=== PATIENT | male | born 1945 | race Caucasian/White ===

== ENCOUNTER 2017-03-26 07:06 | Day surgery (SDC) | payer MEDICARE, BC ==
[2017-03-22 10:04] LABS: BASOPHILS 0.2 %; BASOPHILS ABSOLUTE 0.01 10/3/uL (0.0-0.16); EOSINOPHILS 3.9 %; EOSINOPHILS ABSOLUTE 0.23 10/3/uL (0.0-0.53); HEMATOCRIT 44.1 % (40.0-51.0); IMMATURE GRANULOCYTES 0.2 %; IMMATURE GRANULOCYTES ABSOLUTE 0.01 10/3/uL (0.0-0.11); LYMPHOCYTES 34.7 %; LYMPHOCYTES ABSOLUTE 2.05 10/3/uL (0.67-4.30); MEAN CORPUSCULAR HEMOGLOB 28.7 pg (26.0-34.0); MEAN CORPUSCULAR VOLUME 84.3 fL (80-100); MONOCYTES 9.1 %; MONOCYTES ABSOLUTE 0.54 10/3/uL (0.21-1.20); NEUTROPHILS 51.9 %; NEUTROPHILS ABSOLUTE 3.07 10/3/uL (2.02-8.40); PLATELET COUNT 203 10/3/uL (150-400); RBC DISTRIBUTION WIDTH 13.9 % (12.0-16.0); RED CELL COUNT 5.23 10/6/uL (4.7-6.1); WHITE BLOOD CELLS 5.9 10/3/uL (4.5-10.5)
[2017-03-22 10:07] LABS: MANUAL DIFF NO %
[2017-03-22 10:12] LABS: A/G RATIO 1.4 (0.7-1.9); ALBUMIN 3.9 G/DL (3.5-5.0); ALKALINE PHOSPHATASE 116 U/L (45-117); BUN (BLOOD UREA NITROGEN) 24 MG/DL (6-23); CALCIUM, SERUM 8.8 MG/DL (8.5-10.4); CHLORIDE, SERUM 108 MMOL/L (96-112); CO2 (CARBON DIOXIDE) 32 MMOL/L (24-34); CREATININE 1.25 MG/DL (0.70-1.30); GFR AFRICAN AMERICAN 66 ML/MIN (>=60); GFR NON AFRICAN AMERICAN 57 ML/MIN (>=60); GLOBULIN 2.8 G/DL (2.5-4.1); GLUCOSE, SERUM 92 MG/DL (60-99); POTASSIUM, SERUM 3.9 MMOL/L (3.5-5.3); SGOT(AST) 23 U/L (5-40); SGPT(ALT) 24 U/L (5-65); SODIUM, SERUM 143 MMOL/L (135-148); TOTAL BILIRUBIN 0.8 MG/DL (0-1.2); TOTAL PROTEIN 6.7 G/DL (6.0-8.5)
--- NOTE | ~2017-03-26 | OP ---
Record Of Operation [facility] [address] [place]. [address] NAME: DULCE BAIG : 43 [place]US : [place] [facility] [place] PAT#: [id number] AGE: 71 ADM/REG DATE : 03/26/17 MR#: [id number] REPORT SERV DATE: 03/26/17 DICTATED BY: KAVIN RAGLAND III DATE: 03/26/17 REPORT STATUS : Draft TRANSCRIBED BY: MODDavid DATE: 03/26/17 DATE OF PROCEDURE: 03/26/2017 PREOPERATIVE DIAGNOSIS: Recurrent symptomatic right inguinal hernia. POSTOPERATIVE DIAGNOSIS: Recurrent symptomatic right inguinal hernia. PROCEDURE: Open [place] tension-free repair of right inguinal hernia with Prolene mesh. SURGEON: Kavin Ragland M.D. ANESTHESIA: General with intubation. COMPLICATIONS: None. ESTIMATED BLOOD LOSS: Less than 5 mL. SPECIMENS: None. DRAINS: None. LAP AND SPONGE COUNT: Correct x3. BRIEF HISTORY: This 71-year-old male presented with a symptomatic recurrent right inguinal hernia. It was felt that open right inguinal hernia repair was indicated. This procedure, the risks, benefits, and alternatives, including not limited to the risk for bleeding, infection, pain, swelling, scarring, deformity of the area, seroma formation, hematoma formation, recurrence of the hernia, nerve injury, chronic paresthesia, pain in the thigh, scrotum, or groin, chronic neuralgia or neuroma, and unforeseen complications including deep venous thrombosis, pulmonary embolus, myocardial infarction, stroke, pneumonia, and , were explained to the patient prior to surgery. The expected length of recovery was explained. The patient had questions, which were answered. He fully understood the risks and agreed to surgery as planned. PROCEDURE: After being properly identified and after discussing the risks of surgery with him again in the preoperative area and after identifying the hernia with his help in the preoperative area, the patient was taken to the operating room and placed in supine position on the operating room table. General anesthesia was administered. He was intubated without difficulty. The abdomen and groins were prepped and draped sterilely in the usual fashion. After an appropriate "time-out" per JCAHO standards, a small oblique incision was made in the right groin from pubic tubercle medially towards the anterior and superior iliac spine laterally. The incision was continued through the subcutaneous tissue. Hemostasis was controlled with cautery. The external oblique fascia was identified. This was very thin and attenuated. It was opened along the direction of its fibers, so as to open the external inguinal ring. Using sharp dissection, the underlying ilioinguinal and genitofemoral nerves were identified. These were carefully isolated and protected to one side. Using sharp Record Of Operation [place] [id number] [facility] [place]. [address] NAME: DULCE BAIG : 43 [place]US : [place] [facility] [place] PAT#: [id number] AGE: 71 ADM/REG DATE : 03/26/17 MR#: [id number] REPORT SERV DATE: 03/26/17 DICTATED BY: KAVIN RAGLAND III DATE: 03/26/17 REPORT STATUS : Draft TRANSCRIBED BY: MINE DATE: 03/26/17 dissection, the spermatic cord and contents were mobilized from the floor of the canal. A [place] drain placed beneath it. There was noted to be two direct hernias protruding through the floor of the canal, one in the midportion of the canal and the other just lateral to the internal ring. Using sharp dissection, these hernias were dissected free from the surrounding tissues and reduced back in the abdominal cavities. The spermatic cord was skeletonized and it was noted there was no indirect component to the hernia. The fascial defects were closed with interrupted 2-0 silk sutures, which were placed between shelving edge of the inguinal ligament laterally and the internal oblique and transversalis fascia medially. This resulted in good closure of the two discrete separate fascial defects with no tension. A Prolene mesh was then selected and cut to the appropriate size for the floor of the canal. A slit was made in the mesh laterally to incorporate the spermatic cord. The mesh was then secured to the floor of the canal with a running 2-0 Prolene suture, which was placed between the edge of the mesh and shelving edge of the inguinal ligament laterally and the edge of the mesh, in the internal, oblique, and transversalis fascia medially. The mesh was secured lateral to the cord as well. Upon completion of this, the mesh lay nicely on the floor of the canal. It was not twisted or kinked in any way. It was not under any tension. A small finger could be placed through the internal ring, so the spermatic vessels not been unduly tightened or narrowed. Hemostasis was assured. The external oblique fascia was closed with a running 2-0 silk suture. Subcutaneous tissue was closed with running 3-0 chromic suture. The skin was closed with running subcuticular 4-0 Monocryl stitch. The incision was injected with 0.5% Marcaine. Dressings were applied. Anesthesia was reversed. The patient returned to the recovery room in stable condition. He tolerated the procedure well. His family was informed results of surgery. The patient will be discharged when stable and comfortable and able to void and ambulate. His family was advised he is to keep his wounds clean and dry for 48 hours, he should not drive for three to four days after surgery or while using narcotics, that he should resume his usual medications and should not perform any heavy lifting for five to six weeks. He was asked to return in two weeks for followup or sooner if any fever, chills, wound drainage, or other problems prior to that time. He was given a prescription for Percocet 7.5 one t.i.d. #12, as needed for pain, which he was advised not to use while driving or with other narcotics. RHJ/MODL Kavin Ragland III, M.D. / [id number] CC: Kavin Ragland III, M.D.
--- NOTE | ~2017-03-26 | PREOPHP ---
PreOp History and Physical [address] [place]. [address] NAME: DULCE BAIG : 43 STATUS : PRE [facility] [place] PAT#: [id number] AGE: 71 ADM/REG DATE : MR#: [id number] REPORT SERV DATE: 03/26/17 DICTATED BY: KAVIN CASTILLO III DATE: 03/14/17 REPORT STATUS : Draft TRANSCRIBED BY: MODDavid DATE: 03/14/17 HISTORY OF PRESENT ILLNESS: This 71-year-old male comes to the operating room for open repair of symptomatic right inguinal hernia. The patient has a right inguinal hernia, which has been associated with local pain and discomfort. The patient has had no nausea, vomiting, or obstructive symptoms. He comes to the operating room now for open repair of this hernia. PAST MEDICAL HISTORY: Essentially unremarkable. No history of any significant medical problems. MEDICATIONS: None regularly. FAMILY HISTORY: Positive for heart disease. SOCIAL HISTORY: The patient has a history of tobacco abuse. No history of alcohol use. ALLERGIES: NONE. REVIEW OF SYSTEMS: The patient's 14-point review of systems was otherwise unremarkable. PHYSICAL EXAMINATION: GENERAL: This is a male, in no acute distress. He is alert and oriented x3. VITAL SIGNS: Blood pressure 128/81, pulse 62, temperature 97. HEENT: Unremarkable. Cranial nerves 2 through 12 are normal. LUNGS: Clear. HEART: Normal. ABDOMEN: Soft, nontender. SKIN: The right groin has a moderate-sized inguinal hernia. This is reducible. The left groin is normal. EXTREMITIES: Normal. ASSESSMENT: A 71-old-old male with symptomatic right inguinal hernia. PLAN: The patient comes to the operating room now for open right inguinal hernia repair. This procedure, the risks, benefits, alternatives, including, but not limited to the risk for bleeding, infection, pain, swelling, scarring, deformity to the area, seroma formation, hematoma formation, recurrence of the hernia, nerve injury, chronic paresthesia, pain in the thigh, scrotum, or groin, chronic neuralgia or neuroma, and unforeseen complications including deep venous thrombosis, pulmonary embolus, myocardial infarction, stroke, pneumonia, and , have been explained to the patient prior to surgery. The expected length of recovery has been explained. His questions have been answered. He understands the risks and agrees to surgery as planned. RHJ/MODL PreOp History and Physical [address] [place] [id number] NAME: DULCE BAIG : 43 STATUS : PRE [facility] [place] PAT#: [id number] AGE: 71 ADM/REG DATE : MR#: [id number] REPORT SERV DATE: 03/26/17 DICTATED BY: KAVIN CASTILLO III DATE: 03/14/17 REPORT STATUS : Draft TRANSCRIBED BY: MINE DATE: 03/14/17 Kavin Castillo III, M.D. / [id number]
[~2017-03-26 07:06] MED LIST: *DENIES
== END 2017-03-26 14:04 | disposition home or self-care (01) ==
LOC: SDC 07:06
PROVIDERS: Surgery
PROC: 0YU50JZ Supplement Right Inguinal Region with Synthetic Substitute, Open Approach (ICD-10-PCS; principal; 2017-03-26 09:15)
DX: K40.91 Unilateral inguinal hernia, without obstruction or gangrene, recurrent (principal); H91.90 Unspecified hearing loss, unspecified ear; Z82.49 Family history of ischemic heart disease and other diseases of the circulatory system; Z97.4 Presence of external hearing-aid; Z97.2 Presence of dental prosthetic device (complete) (partial); Z98.890 Other specified postprocedural states
CPT/HCPCS: 71020; 80053; 85025; 93005; A9270-GY; C1781; J0690; J2250; J2405; J2710; J3010